=== PATIENT | female | born 1955 | race Caucasian/White ===

== ENCOUNTER 2017-10-23 20:02 | Inpatient (IN) | payer OTHER ==
[~2017-10-23] VITALS: Ht 167.6 cm; Wt 66.3 kg
[~2017-10-23 20:02] MED LIST: ETOMIDATE 20 MG/10 ML ONE; MIDAZOLAM 1 MG/ML, 5ML ONE; PROPOFOL 10 MG/ML, 100ML IV ONE; SUCCINYLCHOLINE 20 MG/ML, 10ML ONE
[2017-10-23] MEDS: PROPOFOL 100 ML IV PRN (20:10)
[2017-10-23] MEDS ORDERED: methylPREDNISolone SOD SUCC 125 MG/2 ML ONE (20:13)
[2017-10-23] MEDS ORDERED: ALBUTEROL 0.5%, 20ML ONE (20:15)
[2017-10-23] MEDS ORDERED: PLEASE ENTER ALLERGIES MC SCH (20:30)
[2017-10-23] MEDS ORDERED: SODIUM CHLORIDE FLUSH 10ML SYR IVF ONE (20:30)
[2017-10-23] MEDS ORDERED: SUCCINYLCHOLINE 20 MG/ML, 10ML IVPush ONE (20:30)
[2017-10-23] MEDS ORDERED: ETOMIDATE 20 MG/10 ML IVPush ONE (20:30)
[2017-10-23] MEDS ORDERED: PROPOFOL 100 ML IV SCH (20:30)
[2017-10-23] MEDS ORDERED: FENTANYL PF 100 MCG/2ML ONE (20:30)
[2017-10-23] MEDS ORDERED: methylPREDNISolone SOD SUCC 125 MG/2 ML IVP ONE (20:30)
[2017-10-23] MEDS ORDERED: PLEASE ENTER HEIGHT AND WEIGHT MC SCH (20:30)
[2017-10-23 20:34] LABS: BASOPHILS # (AUTO) 0.07 x10^3/uL (0-0.1); BASOPHILS % (AUTO) 1 % (0-1); EOSINOPHILS # (AUTO) 0.45 x10^3/uL (0-0.4); EOSINOPHILS % (AUTO) 4 % (1-7); LYMPHOCYTES # (AUTO) 4.57 x10^3/uL (1-3.4); LYMPHOCYTES % (AUTO) 38 % (22-44); MD NO; MEAN CORPUSCULAR HEMOGLOBIN 30.5 pg (27.0-34.8); MEAN CORPUSCULAR VOLUME 92.3 fL (80-100); MEAN PLATELET VOLUME 7.9 fL (7.4-10.4); MONOCYTES % (AUTO) 4 % (2-9); NEUTROPHILS # (AUTO) 6.33 x10^3/uL (1.8-6.8); NEUTROPHILS % (AUTO) 53 % (42-75); PLATELET COUNT 269 x10^3/uL (130-400); RED BLOOD COUNT 5.08 x10^6/uL (3.82-5.3); RED CELL DISTRIBUTION WIDTH 14.7 % (9.6-15.2)
[2017-10-23 20:44] LABS: INTERNATIONAL NORMALIZED RATIO 2.79 (0.93-1.1); PROTHROMBIN TIME 28.2 Seconds (9.6-11.5)
[2017-10-23 20:48] LABS: ALANINE AMINOTRANSFERASE 47 U/L (12-78); ALBUMIN 3.7 g/dL (3.4-5.0); ANION GAP 7 mmol/L (5-15); CALCIUM 8.3 mg/dL (8.5-10.1); CHLORIDE 108 mmol/L (98-107); CREATININE 1.03 mg/dL (0.55-1.02)
[2017-10-23 20:52] LABS: ALKALINE PHOSPHATASE 71 U/L (45-117); BILIRUBIN,TOTAL 0.3 mg/dL (0.2-1.0); TOTAL PROTEIN 7.5 g/dL (6.4-8.2); TROPONIN I < 0.015 ng/mL (0.000-0.045)
[2017-10-23] MEDS ORDERED: FENTANYL PF 100 MCG/2ML IVPush ONE (21:00)
[2017-10-23] MEDS ORDERED: MIDAZOLAM 1 MG/ML, 5ML IVPush ONE (21:00)
[2017-10-23 21:21] LABS: MICROSCOPIC INDICATED
[2017-10-23 21:24] LABS: CULTURE INDICATED? NO
[2017-10-23] MEDS ORDERED: DOXYCYCLINE 100MG TABLET PO SCH (21:30)
[2017-10-23] MEDS ORDERED: PHARMACY MAY ADJ FOR RENAL FX MC SCH (21:30)
[2017-10-23] MEDS ORDERED: LIDOCAINE-MPF 1%, 2ML ENDO PRN (21:30)
[2017-10-23] MEDS ORDERED: DOCUSATE 100 MG CAPSULE PO PRN (22:00)
[2017-10-23] MEDS ORDERED: POLYETHYLENE GLYCOL 17 GM PACKET PO PRN (22:00)
[2017-10-23] MEDS ORDERED: BISACODYL 10 MG SUPP PR PRN (22:00)
[2017-10-23] MEDS ORDERED: hydrALAzine 20 MG/ML, 1ML IVPush PRN (22:00)
[2017-10-23 22:22] LABS: HEMOGLOBIN A1C 5.8 % (4.2-6.3)
[2017-10-23 22:23] LABS: FREE T4 (FREE THYROXINE) 1.04 ng/dL (0.76-1.46); THYROID STIMULATING HORMONE 2.72 mIU/L (0.358-3.740)
[2017-10-23] MEDS: DOXYCYCLINE 100 MG in DEXTROSE 5% 250 ML IV SCH (22:26)
[2017-10-23] MEDS: morphine SULFATE 10 MG/ML, 1ML IVPush PRN (22:36)
[2017-10-23] MEDS ORDERED: ALBUTEROL/IPRATROPIUM 2.5MG/0.5MG, 3 ML ONE (22:40)
[2017-10-23] MEDS: ALBUTEROL/IPRATROPIUM 2.5MG/0.5MG, 3 ML INLINE SCH (22:46)
[2017-10-23 22:50] VITALS: BP 127/86
[2017-10-23] MEDS ORDERED: ALBUTEROL/IPRATROPIUM 2.5MG/0.5MG, 3 ML INLINE PRN (23:00)
[2017-10-24] MEDS: PROPOFOL 100 ML IV PRN ×2 (02:05→09:56)
[2017-10-24] MEDS: methylPREDNISolone SOD SUCC 125 MG/2 ML IV SCH ×4 (02:09→21:09)
[2017-10-24 02:57] LABS: BASOPHILS % (AUTO) 0 % (0-1); EOSINOPHILS % (AUTO) 0 % (1-7); LYMPHOCYTES # (AUTO) 0.72 x10^3/uL (1-3.4); LYMPHOCYTES % (AUTO) 8 % (22-44); MD NO; MEAN CORPUSCULAR HGB CONC 33.1 g/dL (32.4-35.8); MEAN CORPUSCULAR VOLUME 93.5 fL (80-100); MEAN PLATELET VOLUME 7.9 fL (7.4-10.4); MONOCYTES # (AUTO) 0.09 x10^3/uL (0.2-0.8); MONOCYTES % (AUTO) 1 % (2-9); NEUTROPHILS # (AUTO) 8.12 x10^3/uL (1.8-6.8); NEUTROPHILS % (AUTO) 91 % (42-75); PLATELET COUNT 199 x10^3/uL (130-400)
[2017-10-24 03:06] LABS: INTERNATIONAL NORMALIZED RATIO 2.45 (0.93-1.1); PROTHROMBIN TIME 24.8 Seconds (9.6-11.5)
[2017-10-24 03:10] LABS: ANION GAP 7 mmol/L (5-15); CALCIUM 8.7 mg/dL (8.5-10.1); CHLORIDE 111 mmol/L (98-107)
[2017-10-24] MEDS ORDERED: LACTATED RINGERS 1,000 ML IVBOLUS ONE (03:30)
[2017-10-24 03:58] VITALS: BP 100/67
[2017-10-24] MEDS: morphine SULFATE 10 MG/ML, 1ML IVPush PRN ×2 (05:48→10:39)
[2017-10-24] MEDS: ALBUTEROL/IPRATROPIUM 2.5MG/0.5MG, 3 ML INLINE SCH ×3 (06:52→14:54)
[2017-10-24] MEDS: FAMOTIDINE 20 MG/2 ML IVPush SCH ×2 (08:30→21:09)
[2017-10-24] MEDS: DOXYCYCLINE 100 MG in DEXTROSE 5% 250 ML IV SCH ×2 (09:56→22:49)
[2017-10-24 11:59] LABS: AMPHETAMINE SCREEN, URINE Negative (Negative); BARBITURATE SCREEN, URINE Negative (Negative); BENZODIAZEPINE SCREEN, URINE Positive (Negative); CANNABINOID SCREEN, URINE Negative (Negative); COCAINE SCREEN, URINE Negative (Negative); METHADONE SCREEN, URINE Negative (Negative); OPIATE SCREEN, URINE Positive (Negative)
[2017-10-24] MEDS ORDERED: FENTANYL PF 100 MCG/2ML IVPush PRN (14:30)
[2017-10-24] MEDS ORDERED: WARFARIN BIOPROSTHETIC VALVE PROTOCOL 2-3 XX PRN (16:30)
[2017-10-24] MEDS ORDERED: WARFARIN 5 MG TABLET PO-COUM ONE (18:00)
[2017-10-24] MEDS ORDERED: SODIUM CHLORIDE 0.9% 1,000 ML IV SCH (18:00)
[2017-10-24] MEDS: GABAPENTIN 300 MG CAPSULE PO SCH (21:10)
[2017-10-24] MEDS ORDERED: ALBUTEROL/IPRATROPIUM 2.5MG/0.5MG, 3 ML NPPB SCH (21:30)
[2017-10-24] MEDS: ALBUTEROL/IPRATROPIUM 2.5MG/0.5MG, 3 ML NPPB SCH (22:10)
[2017-10-25] MEDS: methylPREDNISolone SOD SUCC 125 MG/2 ML IV SCH ×2 (02:51→10:18)
[2017-10-25] MEDS: ALBUTEROL/IPRATROPIUM 2.5MG/0.5MG, 3 ML NPPB SCH ×5 (05:36→20:25)
[2017-10-25 05:38] LABS: INTERNATIONAL NORMALIZED RATIO 3.21 (0.93-1.1)
[2017-10-25 05:39] LABS: ANION GAP 7 mmol/L (5-15); CALCIUM 8.6 mg/dL (8.5-10.1); CHLORIDE 114 mmol/L (98-107); CREATININE 0.85 mg/dL (0.55-1.02); PROTHROMBIN TIME 32.3 Seconds (9.6-11.5)
[2017-10-25 05:48] LABS: BASOPHILS # (AUTO) 0.03 x10^3/uL (0-0.1); BASOPHILS % (AUTO) 0 % (0-1); EOSINOPHILS % (AUTO) 0 % (1-7); LYMPHOCYTES # (AUTO) 0.98 x10^3/uL (1-3.4); LYMPHOCYTES % (AUTO) 9 % (22-44); MD NO; MEAN CORPUSCULAR HEMOGLOBIN 31.4 pg (27.0-34.8); MEAN CORPUSCULAR HGB CONC 33.8 g/dL (32.4-35.8); MEAN CORPUSCULAR VOLUME 92.8 fL (80-100); MEAN PLATELET VOLUME 8.1 fL (7.4-10.4); MONOCYTES # (AUTO) 0.47 x10^3/uL (0.2-0.8); MONOCYTES % (AUTO) 4 % (2-9); NEUTROPHILS # (AUTO) 9.89 x10^3/uL (1.8-6.8); NEUTROPHILS % (AUTO) 87 % (42-75); PLATELET COUNT 193 x10^3/uL (130-400); RED BLOOD COUNT 3.92 x10^6/uL (3.82-5.3); RED CELL DISTRIBUTION WIDTH 15.1 % (9.6-15.2)
[2017-10-25 06:07] VITALS: BP 114/57
[2017-10-25] MEDS ORDERED: SODIUM CHLORIDE 0.45% 1,000 ML IV SCH (08:00)
[2017-10-25] MEDS: FAMOTIDINE 20 MG/2 ML IVPush SCH (10:18)
[2017-10-25] MEDS: GABAPENTIN 300 MG CAPSULE PO SCH ×3 (10:18→21:36)
[2017-10-25] MEDS: DOXYCYCLINE 100 MG in DEXTROSE 5% 250 ML IV SCH ×2 (11:47→22:39)
[2017-10-25] MEDS ORDERED: WARFARIN 2 MG TABLET PO-COUM ONE (18:00)
[2017-10-25] MEDS ORDERED: HOLD MEDICATION WARFARIN MC ONE (18:00)
[2017-10-25 20:21] VITALS: BP 93/52
[2017-10-25] MEDS ORDERED: CYCLOBENZAPRINE 10 MG TABLET PO PRN (21:30)
[2017-10-25] MEDS: HYDROcodone/APAP 5/325 TABLET PO PRN (21:36)
[2017-10-25] MEDS: TRAZODONE 100MG TABLET PO PRN (21:36)
[2017-10-26 01:34] VITALS: BP 97/59
[2017-10-26 05:23] LABS: BASOPHILS # (AUTO) 0.02 x10^3/uL (0-0.1); BASOPHILS % (AUTO) 0 % (0-1); EOSINOPHILS % (AUTO) 0 % (1-7); LYMPHOCYTES # (AUTO) 2.06 x10^3/uL (1-3.4); LYMPHOCYTES % (AUTO) 20 % (22-44); MD NO; MEAN CORPUSCULAR HEMOGLOBIN 31.3 pg (27.0-34.8); MEAN CORPUSCULAR HGB CONC 33.6 g/dL (32.4-35.8); MEAN CORPUSCULAR VOLUME 93.3 fL (80-100); MEAN PLATELET VOLUME 8.1 fL (7.4-10.4); MONOCYTES # (AUTO) 0.76 x10^3/uL (0.2-0.8); MONOCYTES % (AUTO) 7 % (2-9); NEUTROPHILS # (AUTO) 7.67 x10^3/uL (1.8-6.8); NEUTROPHILS % (AUTO) 73 % (42-75); PLATELET COUNT 189 x10^3/uL (130-400); RED BLOOD COUNT 3.71 x10^6/uL (3.82-5.3); RED CELL DISTRIBUTION WIDTH 15.6 % (9.6-15.2)
[2017-10-26 05:24] LABS: INTERNATIONAL NORMALIZED RATIO 2.23 (0.93-1.1); PROTHROMBIN TIME 22.6 Seconds (9.6-11.5)
[2017-10-26 05:30] LABS: ANION GAP 5 mmol/L (5-15); CALCIUM 8.5 mg/dL (8.5-10.1); CHLORIDE 114 mmol/L (98-107)
[2017-10-26 05:32] LABS: CREATININE 0.61 mg/dL (0.55-1.02); TRIGLYCERIDES 42 mg/dL (50-200)
[2017-10-26] MEDS: ALBUTEROL/IPRATROPIUM 2.5MG/0.5MG, 3 ML NPPB SCH ×4 (07:27→19:44)
[2017-10-26 08:02] VITALS: BP 96/59
[2017-10-26] MEDS: DOXYCYCLINE 100 MG in DEXTROSE 5% 250 ML IV SCH ×2 (10:06→22:30)
[2017-10-26] MEDS: GABAPENTIN 300 MG CAPSULE PO SCH ×3 (10:07→20:58)
[2017-10-26] MEDS: HYDROcodone/APAP 5/325 TABLET PO PRN ×2 (10:14→21:15)
[2017-10-26 12:25] VITALS: BP 96/55
[2017-10-26] MEDS ORDERED: PRED5TAB PO (12:44)
[2017-10-26] MEDS ORDERED: DOXY100T PO (12:44)
[2017-10-26] MEDS ORDERED: GABA300C10 PO (12:44)
[2017-10-26] MEDS ORDERED: WARFARIN 2 MG TABLET PO-COUM ONE (18:00)
[2017-10-26 20:40] VITALS: BP 100/61
[2017-10-26] MEDS: TRAZODONE 100MG TABLET PO PRN (21:15)
[2017-10-27 03:00] VITALS: BP 96/60
[2017-10-27 05:37] LABS: INTERNATIONAL NORMALIZED RATIO 1.31 (0.93-1.1); PROTHROMBIN TIME 13.4 Seconds (9.6-11.5)
[2017-10-27 05:44] LABS: BASOPHILS # (AUTO) 0.02 x10^3/uL (0-0.1); BASOPHILS % (AUTO) 0 % (0-1); EOSINOPHILS # (AUTO) 0.01 x10^3/uL (0-0.4); EOSINOPHILS % (AUTO) 0 % (1-7); LYMPHOCYTES % (AUTO) 41 % (22-44); MD NO; MEAN CORPUSCULAR HGB CONC 33.3 g/dL (32.4-35.8); MEAN PLATELET VOLUME 7.7 fL (7.4-10.4); MONOCYTES # (AUTO) 0.65 x10^3/uL (0.2-0.8); MONOCYTES % (AUTO) 9 % (2-9); NEUTROPHILS # (AUTO) 3.81 x10^3/uL (1.8-6.8); NEUTROPHILS % (AUTO) 50 % (42-75); PLATELET COUNT 186 x10^3/uL (130-400); RED BLOOD COUNT 3.61 x10^6/uL (3.82-5.3); RED CELL DISTRIBUTION WIDTH 15.2 % (9.6-15.2)
[2017-10-27 05:45] LABS: ANION GAP 4 mmol/L (5-15); CALCIUM 8.3 mg/dL (8.5-10.1); CHLORIDE 111 mmol/L (98-107)
[2017-10-27 05:47] LABS: CREATININE 0.68 mg/dL (0.55-1.02)
[2017-10-27] MEDS: ALBUTEROL/IPRATROPIUM 2.5MG/0.5MG, 3 ML NPPB SCH ×3 (07:30→17:03)
[2017-10-27 07:41] VITALS: BP 101/60
[2017-10-27] MEDS: GABAPENTIN 300 MG CAPSULE PO SCH ×2 (08:01→15:58)
[2017-10-27] MEDS: DOXYCYCLINE 100 MG in DEXTROSE 5% 250 ML IV SCH (10:30)
[2017-10-27] MEDS: HYDROcodone/APAP 5/325 TABLET PO PRN (13:04)
[2017-10-27] MEDS ORDERED: WARF-36 PO (13:37)
[2017-10-27] MEDS ORDERED: IPRA3AMP30 NPPB (13:37)
[2017-10-27] MEDS ORDERED: PRAV40TA2 PO (13:37)
[2017-10-27 13:41] VITALS: BP 105/65
[2017-10-27] MEDS ORDERED: WARFARIN 5 MG TABLET PO-COUM ONE (18:00)
== END 2017-10-27 17:45 | disposition home or self-care (01) | DRG 208 ==
LOC: ED 21:16 → EDIP 21:20 → CCU 21:46 → 4NOR 10-25 18:50
PROVIDERS: ADMIT Internal Medicine; ATTEND Family Medicine
PROC: 0T9B70Z Drainage of Bladder with Drainage Device, Via Natural or Artificial Opening (ICD-10-PCS; principal; 2017-10-23)
PROC: 5A1935Z Respiratory Ventilation, Less than 24 Consecutive Hours (ICD-10-PCS; 2017-10-23)
PROC: 0BH17EZ Insertion of Endotracheal Airway into Trachea, Via Natural or Artificial Opening (ICD-10-PCS; 2017-10-23)
DX: J96.01 Acute respiratory failure with hypoxia (principal); G93.41 Metabolic encephalopathy; N17.0 Acute kidney failure with tubular necrosis; D68.9 Coagulation defect, unspecified; E87.2 Acidosis; J44.1 Chronic obstructive pulmonary disease with (acute) exacerbation; Z99.11 Dependence on respirator [ventilator] status; J96.02 Acute respiratory failure with hypercapnia; Z79.01 Long term (current) use of anticoagulants; Z79.899 Other long term (current) drug therapy; Z95.810 Presence of automatic (implantable) cardiac defibrillator; Z96.89 Presence of other specified functional implants
CPT/HCPCS: 31500; 36415; 36600; 71045; 80048; 80053; 80307; 81001; 82803; 82805; 83036; 83605; 83735; 83880; 84439; 84443; 84478; 84484; 85025; 85610; 87040; 87070; 87081; 87205; 93005; 93306; 94002; 94003; 94150; 94640; 96374; 96375; J2250; J2704; J3010; J7060; J7620; J0330; J2270; J2930; J7030; J7120; J7512; S0028